=== PATIENT | male | born 1965 | race Two or more races ===

== ENCOUNTER 2017-01-20 08:52 | Day surgery (SDC) | payer MEDICAID ==
[2017-01-20] MEDS ORDERED: KLONOPIN0.5 M1 PO (10:39)
[2017-01-20] MEDS ORDERED: MOBIC7.5 M2 (10:41)
== END 2017-01-20 18:52 ==
LOC: SHSB 08:52 → ORW 10:55 → PACU 12:29 → SHSB 13:15
PROC: 0YU54JZ Supplement Right Inguinal Region with Synthetic Substitute, Percutaneous Endoscopic Approach (ICD-10-PCS; principal; 2017-01-20)
DX: K40.90 Unilateral inguinal hernia, without obstruction or gangrene, not specified as recurrent (principal); F32.9 Major depressive disorder, single episode, unspecified; K21.9 Gastro-esophageal reflux disease without esophagitis; Z79.899 Other long term (current) drug therapy
CPT/HCPCS: C1781; J0690; J1170; J1885; J2270; J2405; J3010